=== PATIENT | male | born 1970 | race Caucasian/White ===

== ENCOUNTER 2017-12-02 12:54 | Outpatient (CLI) | payer OTHER ==
--- NOTE | 2017-12-03 00:17 | Magnetic Resonance Report ---
FINAL REPORT PROCEDURE: MR LUMBAR SPINE WO CON TECHNIQUE: Magnetic resonance imaging of the lumbar spine was performed using standard pulse sequences without contrast material. CPT 47489 HISTORY: EVALUATION FOR TUMOR COMPARISON: No prior studies are available for comparison. FINDINGS: There is no fracture or malalignment. There is a limbus variation of the superior endplate of L4. The conus medullaris ends at L1 and is normal in configuration. There is no gliosis, edema or myelomalacia. There is normal lumbar lordosis. L1-2: There is mild disc bulging. There is mild facet arthropathy. There is no spinal or foraminal stenosis.. L2-3: No significant abnormality . L3-4: There is mild loss of disc height. There is bilateral disc bulging causing moderate bilateral foraminal stenosis. There is no spinal stenosis.. L4-5: There is mild disc bulging causing bilateral foraminal narrowing. There is no spinal stenosis. Facet joints are intact.. L5-S1: No significant abnormality . Other: The sacrum and sacroiliac joints are intact. Paraspinal soft tissues are unremarkable. Epidural soft tissues are unremarkable.. IMPRESSION: There are chronic changes as described. There is no disc herniation or cord compression. There are no fractures or malalignments.
== END 2017-12-02 12:55 | disposition home or self-care (01) ==
LOC: MRI 12:54
PROVIDERS: ATTEND Internal Medicine Gastroenterology
DX: M54.5 Low back pain (principal); I10 Essential (primary) hypertension; N40.0 Benign prostatic hyperplasia without lower urinary tract symptoms; N45.1 Epididymitis; K59.00 Constipation, unspecified; K40.90 Unilateral inguinal hernia, without obstruction or gangrene, not specified as recurrent
CPT/HCPCS: 72148